=== PATIENT | female | born 1990 | race Caucasian/White ===

== ENCOUNTER 2016-11-30 12:37 | Outpatient (CLI) | payer OTHER ==
[~2016-11-30] VITALS: Ht 152.4 cm; Wt 90.5 kg
--- NOTE | 2016-11-30 12:57 | RADRPT ---
PROCEDURE: OB ultrasound for biophysical profile CLINICAL INDICATION: Decreased movement TECHNIQUE: Multiple sonographic images of the pelvis were obtained. Transabdominal views of the g ravid uterus are available for review. The images were reviewed on a PACS workstation. COMPARISON: None FINDINGS: breathing movement = 2/2 tone = 2/2 motion = 2/2 EFE = 2/2 EFE = 9.5 cm Single live intrauterine with cardiac activity of 168 bpm. position is cephal ic. The placenta is posterior. IMPRESSION: 1. Single live intrauterine gestation. 2. Biophysical profile = 8/8. 3. EFE = 9.5 cm. RPTAT: HH .Rosa Mojica MD, MD Date Time Electronically viewed and signed by .Rosa Mojica MD, on 11/30/2016 12:56 .G/
[2016-11-30 13:40] VITALS: Ht 152.4 cm; Wt 90.5 kg
[2016-11-30 13:41] VITALS: BP 107/68; PULSE 115; RESP 20
[2016-11-30] MEDS ORDERED: PRENAT PO (13:51)
--- NOTE | 2016-11-30 15:02 | TRIAGE ---
OB Triage Datetime Report Generated by CPN: 11/30/2016 15:01 Datetime: 11/30/2016 14:02 Labor Evaluation Frequency: 0 Monitor Mode: External Resting Tone Spray: Relaxed Heart Rate FHR Baseline Rate: 140 Monitor Mode: External US FHR Baseline Changes: No Baseline Change Variability: Moderate 6-25 bpm Accelerations: 10X10 Decelerations: None Category: Category I Datetime: 11/30/2016 14:00 Stage of : OB Triage Maternal Assessment Level of Consciousness: Fully Conscious Labor Evaluation Frequency: NONE Monitor Mode: External Resting Tone Spray: Relaxed Heart Rate FHR Baseline Rate: 145 Monitor Mode: External US Variability: Moderate 6-25 bpm Accelerations: 15X15 Decelerations: None Category: Category I Pain Assessment Pain Scale: 0 Pain Goal: 3 Membrane Status: Intact Vaginal Bleeding: None Datetime: 11/30/2016 13:10 Labor Evaluation Frequency: 0 Monitor Mode: External Resting Tone Spray: Relaxed Heart Rate FHR Baseline Rate: 150 Monitor Mode: External US FHR Baseline Changes: No Baseline Change Variability: Moderate 6-25 bpm Accelerations: 15X15 Decelerations: None Category: Category I Pain Assessment Pain Scale: 0 Pain Presence: Intermittent Pain Type: Dull Pain Location: Other Pain Relief Measures: Comfort Measures Pain Assessment Comments: SCIATIC Datetime: 11/30/2016 13:02 Stage of : OB Triage Assessment Type: Triage Time of Arrival: 11/30/2016 13:02 EGA: 33.6 Arrived By: Ambulatory Arrived From: Home Chief Complaint: DECREASED MOVEMENT Movement: Decreased Contractions: Denies/Absent Contractions: NONE Rupture of Membranes: Denies Vaginal Bleeding: None Vaginal Discharge: Denies Recent Sexual Intercouse: Denies Abdominal Trauma: Not Applicable Patient Complaints: None Additional Patient Complaints: NONE Time Provider Notified: 11/30/2016 14:49 Provider Notified: SALCEDA Initial Plan: NST AND BPP Maternal Assessment Level of Consciousness: Fully Conscious DTR's/Clonus: DTRs 2+; No Clonus Headache: Denies Blurred Vision: No Respiratory Effort: Unlabored; Regular Rhythm; Equal Expansion Breath Sounds, Left: Clear and Equal Breath Sounds, Right: Clear and Equal Nausea/Vomiting: Denies RUQ Epigastric Pain: Denies Lower Extremities Edema: None Degree: None Upper Extremities Edema: None Degree: None Facial Edema: None Temperature Route: Oral Fall Risk Assessment History of Falling: (0) No Secondary Diagnosis: (0) No Ambulatory Aid: (0) Bedrest/Nurse Assist IV Therapy: (0) No Gait: (0) Normal/Bedrest/Immobile Mental Status: (0) Oriented to Own Ability Fall Score: 0 Fall Risk Score Definition: No Risk: No action required Labor Evaluation Frequency: 0 Monitor Mode: External Resting Tone Spray: Relaxed Monitor Mode: External US Pain Assessment Pain Scale: 4 Pain Presence: Intermittent Pain Type: Dull Pain Location: Left Hip Vaginal Exam Dilatation (cms): DEFFER Membrane Status: Intact
--- NOTE | 2016-11-30 15:03 | PN ---
Triage Information Date/Time Reason for visit: DFM Weeks of Gestation 33+ /Para 1/0 Diabetes: none Objective Vital Signs Date Time Temp Pulse Resp B/P Pulse Ox O2 Delivery O2 Flow Rate FiO2 11/30/16 13:41 98.2 115 20 107/68 95 Room Air Heart Rate: 140's Disposition: Discharge Assessment/Plan Precautions discussed BPP 11/16 NST reassuring Follow up with provider EDGARD MCMULLEN M.D. Nov 30, 2016 15:03
== END 2016-11-30 15:10 | disposition home or self-care (01) ==
LOC: OBT 12:37 → L-D 12:37 → OBT 15:10
PROVIDERS: ATTEND Obstetrics & Gynecology
DX: O36.8130 Decreased fetal movements, third trimester, not applicable or unspecified (principal); Z3A.33 33 weeks gestation of pregnancy
CPT/HCPCS: 76818; Z7500; G0463

== ENCOUNTER 2017-01-18 19:03 | Outpatient (CLI) | payer OTHER ==
[~2017-01-18] VITALS: Ht 152.4 cm; Wt 93.0 kg
[~2017-01-18 19:03] MED LIST: PRENAT PO
--- NOTE | 2017-01-18 20:26 | RADRPT ---
PROCEDURE: US biophysical profile. CLINICAL INDICATION: Contractions. TECHNIQUE: Multiple sonographic images of the uterus were obtained. The images were revi ewed on a PACS workstation. COMPARISON: No prior studies are available for comparison. FINDINGS: There is a single live intrauterine gestation. heart rate is 134 beats per minute. The position is cephalic. The placenta is fundal grade III with no abruption or previa. The EFE is 11.1 cm. (Normal = 5-20 cm.) Breathing Movement: 2 Gross Body Movement: 2 Tone: 2 Qualitative Amniotic Fluid Volume: 2 TOTAL: 8 IMPRESSION: 1. The biophysical score is 8/8. RPTAT: QQ .Jeffrey Alberto MD, Date Time Electronically viewed and signed by .Jeffrey Alberto MD, on 01/18/2017 20:26 .R/
[2017-01-18 20:27] LABS: BASOPHILS % 0.3 % (0.0-2.0); EOSINOPHILS # 0.1 10^3/ul (0.0-0.5); EOSINOPHILS % 0.7 % (0.0-7.0); HEMATOCRIT 40.1 % (37.0-47.0); HEMOGLOBIN 13.5 g/dl (12.0-16.0); LYMPHOCYTES # 2.7 10^3/ul (0.8-2.9); LYMPHOCYTES % 27.2 % (15.0-51.0); MEAN CORPUSCULAR HEMOGLOBIN 28.9 pg (29.0-33.0); MEAN CORPUSCULAR HGB CONC 33.7 g/dl (32.0-37.0); MEAN CORPUSCULAR VOLUME 85.9 fl (82.0-101.0); MEAN PLATELET VOLUME 9.7 fl (7.4-10.4); MONOCYTE # 0.9 10^3/ul (0.3-0.9); MONOCYTES % 9.2 % (0.0-11.0); NEUTROPHIL # 6.1 10^3/ul (1.6-7.5); NEUTROPHILS % 62.2 % (39.0-77.0); PLATELET COUNT 239 10^3/UL (140-415); RED BLOOD COUNT 4.67 10^6/ul (4.20-5.40); RED CELL DISTRIBUTION WIDTH 13.6 % (11.5-14.5); WHITE BLOOD COUNT 9.8 10^3/ul (4.8-10.8)
[2017-01-18 20:39] LABS: ADD UMIC YES; UR ASCORBIC ACID NEGATIVE (NEGATIVE); UR BACTERIA FEW /HPF (NONE SEEN); UR BILIRUBIN (Dip) NEGATIVE (NEGATIVE); UR BLOOD (Dip) 1+ mg/dL (NEGATIVE); UR CLARITY CLEAR (CLEAR); UR COLOR STRAW (YELLOW); UR GLUCOSE (Dip) NEGATIVE (NEGATIVE); UR KETONES (Dip) NEGATIVE (NEGATIVE); UR LEUKOCYTE ESTERASE (Dip) NEGATIVE Leu/ul (NEGATIVE); UR NITRITE (Dip) NEGATIVE (NEGATIVE); UR RBC 1 /HPF (0-5); UR SPECIFIC GRAVITY (Dip) 1.006 (1.003-1.030); UR TOTAL PROTEIN (Dip) NEGATIVE (NEGATIVE); UR UROBILINOGEN (Dip) NEGATIVE (NEGATIVE)
[2017-01-18 21:04] LABS: ALBUMIN 3.6 g/dl (3.3-4.9); ALBUMIN/GLOBULIN RATIO 1.09; BILIRUBIN,INDIRECT 0.1 mg/dl (0-1.1); BILIRUBIN,TOTAL 0.1 mg/dl (0.2-1.3); CALCIUM 9.2 mg/dl (8.4-10.2); CREATININE 0.62 mg/dl (0.44-1.00); POTASSIUM 4.4 mmol/L (3.5-5.1); TOTAL PROTEIN 6.9 g/dl (6.1-8.1); URIC ACID 3.2 mg/dl (3.1-7.9)
--- NOTE | 2017-01-18 23:14 | PN ---
Triage Information Date/Time Reason for visit: Uterine contractions Weeks of Gestation 40 weeks and 6 days /Para Diabetes: gestational Diabetes management: diet controlled Hypertention: none Objective Heart Rate: 130's Contractions: 6-10 Minutes Apart Exam Cervix Fingertip per RN Results/Medications Result Diagram: 01/18/17201401/18/172014 Results 24 hrs Laboratory Tests Test 01/18/17 20:02 01/18/17 20:03 01/18/17 20:15 Membranes Rupture NEGATIVE Urine Color STRAW Urine Clarity CLEAR Urine pH 7.0 Urine Specific [place] 1.006 Urine Ketones NEGATIVE Urine Nitrite NEGATIVE Urine Bilirubin NEGATIVE Urine Urobilinogen NEGATIVE Urine Leukocyte Esterase NEGATIVE Urine Microscopic RBC 1 Urine Microscopic WBC 1 Urine Bacteria FEW A Urine Hemoglobin 1+ H Urine Glucose NEGATIVE Urine Total Protein NEGATIVE White Blood Count 9.8 Red Blood Count 4.67 Hemoglobin 13.5 Hematocrit 40.1 Mean Corpuscular Volume 85.9 Mean Corpuscular Hemoglobin 28.9 L Mean Corpuscular Hemoglobin Concent 33.7 Red Cell Distribution Width 13.6 Platelet Count 239 Mean Platelet Volume 9.7 Neutrophils % 62.2 Lymphocytes % 27.2 Monocytes % 9.2 Eosinophils % 0.7 Basophils % 0.3 Nucleated Red Blood Cells % 0.0 Neutrophils # 6.1 Lymphocytes # 2.7 Monocytes # 0.9 Eosinophils # 0.1 Basophils # 0.0 Nucleated Red Blood Cells # 0.0 Sodium Level 139 Potassium Level 4.4 Chloride Level 108 Carbon Dioxide Level 22 Anion Gap 13 Blood Urea Nitrogen 8 Creatinine 0.62 Glucose Level 80 Uric Acid 3.2 Calcium Level 9.2 Total Bilirubin 0.1 L Direct Bilirubin 0.00 Indirect Bilirubin 0.1 Aspartate Amino Transf (AST/SGOT) 23 Alanine Aminotransferase (ALT/SGPT) 36 Alkaline Phosphatase 150 H Total Protein 6.9 Albumin 3.6 Globulin 3.30 H Albumin/Globulin Ratio 1.09 Imaging Results [facility] 11/16 Disposition: Signed AMA Assessment/Plan Patient is extensively counseled about the potential complications of continuing with , including but not limited to distress, meconium aspiration , . After counseling, patient states she understands and signs out against medical advice. BRYNN WEI MD Jan 18, 2017 23:14
[2017-01-19 00:38] VITALS: Ht 152.4 cm; Wt 93.0 kg
[2017-01-19 00:39] VITALS: BP 125/75; PULSE 77; RESP 18
--- NOTE | 2017-01-19 01:57 | TRIAGE ---
OB Triage Datetime Report Generated by CPN: 01/19/2017 01:56 Datetime: 01/18/2017 23:08 Stage of : OB Triage Comments: MONITORS OFF. PT UP TO DRESS. Datetime: 01/18/2017 22:50 Stage of : OB Triage Datetime: 01/18/2017 22:30 Stage of : OB Triage Monitor Mode: External Contraction Comments: [facility] DID NOT PICKING UP UCs DURING PT SITTING POSITION. Monitor Mode: External US Comments: EFM LOSS OF CONTACT WHEN PT HAS SITTING POSITION. PT STATED SHE UNABLE LYING BACK DUE TO ABDOMEN PAIN. Datetime: 01/18/2017 21:42 Stage of : OB Triage Datetime: 01/18/2017 21:30 Stage of : OB Triage Labor Evaluation Frequency: 2.5-5 Monitor Mode: External Duration (sec)2399: 50-60 Quality: Mild Pattern: Normal: <= 5 Contractions in 10 Minutes Resting Tone Kendrick: Relaxed Heart Rate FHR Baseline Rate: 135 Monitor Mode: External US Variability: Moderate 6-25 bpm Accelerations: 15X15 Decelerations: None Pain Assessment Pain Scale: 4 Pain Presence: Intermittent Pain Type: Contraction; Pressure Pain Location: Perineum Pain Goal: 3 Pain Relief Measures: Comfort Measures Datetime: 01/18/2017 20:30 Stage of : OB Triage Maternal Assessment Level of Consciousness: Fully Conscious Headache: Denies Breath Sounds, Left: Clear and Equal Breath Sounds, Right: Clear and Equal Nausea/Vomiting: Denies RUQ Epigastric Pain: Denies Labor Evaluation Frequency: 2-5.5 Monitor Mode: External Duration (sec)2399: 50-60 Quality: Mild Pattern: Normal: <= 5 Contractions in 10 Minutes Resting Tone Kendrick: Relaxed Heart Rate FHR Baseline Rate: 140 Monitor Mode: External US Variability: Moderate 6-25 bpm Accelerations: 15X15 Decelerations: None Category: Category I Pain Assessment Pain Scale: 4 Pain Presence: Intermittent Pain Type: Contraction; Pressure Pain Location: Perineum Pain Goal: 3 Pain Relief Measures: Comfort Measures Vaginal Exam Dilatation (cms): 0.0 Effacement (%): 80 Station: -2 Exam By: TIFF OROURKE Datetime: 01/18/2017 20:00 Stage of : OB Triage Pool: Negative ROM Test Kit: VAGINAL SPECIMEN COLLECTED FOR ROM(+). Datetime: 01/18/2017 19:45 Stage of : OB Triage Datetime: 01/18/2017 19:38 Stage of : OB Triage Datetime: 01/18/2017 19:30 Stage of : OB Triage Maternal Assessment Level of Consciousness: Fully Conscious Headache: Denies Blurred Vision: No Respiratory Effort: Unlabored; Equal Expansion Breath Sounds, Left: Clear and Equal Breath Sounds, Right: Clear and Equal Nausea/Vomiting: Denies RUQ Epigastric Pain: Denies Lower Extremities Edema: None Upper Extremities Edema: None Facial Edema: None Temperature Route: Oral Labor Evaluation Frequency: 4-6 Monitor Mode: External Duration (sec)2399: 50-70 Quality: Mild Pattern: Normal: <= 5 Contractions in 10 Minutes Resting Tone Kendrick: Relaxed Heart Rate FHR Baseline Rate: 140 Monitor Mode: External US Variability: Moderate 6-25 bpm Accelerations: 15X15 Decelerations: None Category: Category I Pain Assessment Pain Scale: 4 Pain Presence: Intermittent Pain Type: Contraction; Pressure Pain Location: Perineum Pain Goal: 3 Pain Relief Measures: Comfort Measures Vaginal Exam Dilatation (cms): 0.0 Effacement (%): 80 Station: -2 Exam By: TIFF OROURKE Datetime: 01/18/2017 19:25 Stage of : OB Triage Maternal Assessment Level of Consciousness: Fully Conscious DTR's/Clonus: DTRs 2+; No Clonus Headache: Denies Blurred Vision: No Respiratory Effort: Unlabored; Regular Rhythm; Equal Expansion Breath Sounds, Left: Clear and Equal Breath Sounds, Right: Clear and Equal Nausea/Vomiting: Denies RUQ Epigastric Pain: Denies Lower Extremities Edema: None Upper Extremities Edema: None Facial Edema: None Temperature Route: Axillary Fall Risk Assessment History of Falling: (0) No Secondary Diagnosis: (0) No Ambulatory Aid: (0) Bedrest/Nurse Assist IV Therapy: (0) No Gait: (0) Normal/Bedrest/Immobile Mental Status: (0) Oriented to Own Ability Fall Score: 0 Fall Risk Score Definition: No Risk: No action required Datetime: 01/18/2017 19:24 Stage of : OB Triage Datetime: 01/18/2017 19:15 Time of Arrival: 01/18/2017 18:56 EGA: 40.6 Arrived By: Ambulatory Arrived From: Home Chief Complaint: PT C/O ABDOMEN PAIN Movement: Present Contractions: Irregular Time Contractions Began: 01/18/2017 07:00 Rupture of Membranes: Unsure Vaginal Bleeding: None Vaginal Discharge: Denies Recent Sexual Intercouse: Denies Abdominal Trauma: Not Applicable Patient Complaints: Contractions Time Provider Notified: 01/18/2017 19:38 Provider Notified: DR WEI Initial Plan: PLACE EFM AND TOCO, INITIAL PHYSICAL ASSESSMENT, SVE AND NOTIFY MD. Datetime: 11/30/2016 14:57 Stage of : OB Triage Maternal Assessment Level of Consciousness: Fully Conscious Labor Evaluation Frequency: OCCASIONAL Monitor Mode: External Duration (sec)2399: 30-40 Quality: Mild Resting Tone Kendrick: Relaxed Heart Rate FHR Baseline Rate: 145 Monitor Mode: External US Variability: Moderate 6-25 bpm Accelerations: 15X15 Decelerations: Variable Pain Assessment Pain Scale: 0 Pain Goal: 3 Membrane Status: Intact Vaginal Bleeding: None Datetime: 11/30/2016 13:02 EGA: 33.6 Fall Score: 0 Fall Risk Score Definition: No Risk: No action required
[2017-01-19] MEDS ORDERED: FER325 PO (16:22)
[2017-01-19] MEDS ORDERED: CALC600T5 PO (16:22)
== END 2017-01-18 23:00 | disposition left against medical advice (07) ==
LOC: OBT 19:03 → L-D 19:04 → OBT 23:00 → L-D 23:20
PROVIDERS: ATTEND Obstetrics & Gynecology
DX: O62.9 Abnormality of forces of labor, unspecified (principal); O24.410 Gestational diabetes mellitus in pregnancy, diet controlled; Z3A.40 40 weeks gestation of pregnancy; Z53.21 Procedure and treatment not carried out due to patient leaving prior to being seen by health care provider
CPT/HCPCS: 76818; 80053; 81001; 84112; 84560; 85025; Z7500; G0463

== ENCOUNTER 2017-01-19 10:48 | Inpatient (IN) | payer OTHER ==
[~2017-01-19] VITALS: Ht 152.4 cm; Wt 91.5 kg
[2017-01-19] MEDS: LACTATED RINGER'S 1,000 ML IV SCH (11:11)
[2017-01-19 11:18] VITALS: BP 129/65; PULSE 86; RESP 18; Ht 152.4 cm; Wt 91.5 kg
[2017-01-19] MEDS ORDERED: HYDROCODONE/APAP (5/325) TAB PO PRN (11:30)
[2017-01-19] MEDS ORDERED: MISOPROSTOL 200 MCG TAB PR PRN (11:30)
[2017-01-19] MEDS ORDERED: BUTORPHANOL 2 MG INJ IV PRN (11:30)
[2017-01-19] MEDS ORDERED: LIDOCAINE 1% (MPF) 30 ML INJ INJ PRN (11:30)
[2017-01-19] MEDS ORDERED: IBUPROFEN 600 MG TAB PO PRN (11:30)
[2017-01-19] MEDS ORDERED: OXYTOCIN 30 UNITS/LR 500 ML IV SCH ×2 (11:30)
--- NOTE | 2017-01-19 13:07 | TRIAGE ---
OB Triage Datetime Report Generated by CPN: 01/19/2017 13:07 Datetime: 01/19/2017 12:56 Bedside Blood Glucose: 90 Datetime: 01/19/2017 12:02 Stage of : Labor Assessment Type: Admission Assessment Vaginal Bleeding: None Level of Consciousness: Fully Conscious DTR's/Clonus: DTRs 2+; No Clonus Headache: Denies Blurred Vision: No Respiratory Effort: Unlabored; Regular Rhythm; Equal Expansion Breath Sounds, Left: Clear and Equal Breath Sounds, Right: Clear and Equal Nausea/Vomiting: Denies RUQ Epigastric Pain: Denies Lower Extremities Edema: None Degree: None Upper Extremities Edema: None Degree: None Facial Edema: None History of Falling: (0) No Secondary Diagnosis: (0) No Ambulatory Aid: (0) Bedrest/Nurse Assist IV Therapy: (0) No Gait: (0) Normal/Bedrest/Immobile Mental Status: (0) Oriented to Own Ability Fall Score: 0 Fall Risk Score Definition: No Risk: No action required Frequency: 3-5 Duration (sec)2399: 50-70 Quality: Mild Pattern: Normal: <= 5 Contractions in 10 Minutes Resting Tone [place]: Relaxed FHR Baseline Rate: 135 Variability: Moderate 6-25 bpm Accelerations: 15X15 Decelerations: None Category: Category I Pain Scale: 6 Pain Presence: Intermittent Pain Type: Cramping Pain Location: Abdomen Pain Goal: 0 Membrane Status: Intact Datetime: 01/19/2017 11:25 Assessment Type: Triage Level of Consciousness: Fully Conscious DTR's/Clonus: DTRs 2+; No Clonus Headache: Denies Blurred Vision: No Respiratory Effort: Unlabored; Regular Rhythm; Equal Expansion Breath Sounds, Left: Clear and Equal Breath Sounds, Right: Clear and Equal Nausea/Vomiting: Denies RUQ Epigastric Pain: Denies Lower Extremities Edema: None Degree: None Degree: None Facial Edema: None History of Falling: (0) No Secondary Diagnosis: (0) No Ambulatory Aid: (0) Bedrest/Nurse Assist IV Therapy: (0) No Gait: (0) Normal/Bedrest/Immobile Mental Status: (0) Oriented to Own Ability Fall Score: 0 Fall Risk Score Definition: No Risk: No action required Datetime: 01/19/2017 11:23 Stage of : OB Triage Assessment Type: Triage Level of Consciousness: Fully Conscious DTR's/Clonus: DTRs 2+; No Clonus Headache: Denies Blurred Vision: No Respiratory Effort: Unlabored; Regular Rhythm; Equal Expansion Breath Sounds, Left: Clear and Equal Breath Sounds, Right: Clear and Equal Nausea/Vomiting: Denies RUQ Epigastric Pain: Denies Lower Extremities Edema: None Degree: None Upper Extremities Edema: None Degree: None Facial Edema: None Temperature Route: Axillary History of Falling: (0) No Secondary Diagnosis: (0) No Ambulatory Aid: (0) Bedrest/Nurse Assist IV Therapy: (0) No Gait: (0) Normal/Bedrest/Immobile Mental Status: (0) Oriented to Own Ability Fall Score: 0 Fall Risk Score Definition: No Risk: No action required Frequency: 3-5 Monitor Mode: External Duration (sec)2399: 60-180 Quality: Strong Pattern: Normal: <= 5 Contractions in 10 Minutes Resting Tone [place]: Relaxed Resting Tone IUP (mmHg): FHR Baseline Rate: 145 Monitor Mode: External US Variability: Moderate 6-25 bpm Accelerations: 15X15 Decelerations: None Category: Category I Pain Scale: 10 Pain Presence: Intermittent Pain Type: Contraction Pain Location: Abdomen; Back; Perineum Pain Goal: 2 Pain Relief Measures: Comfort Measures Pain Assessment Comments: 2 Dilatation (cms): 3.0 Effacement (%): 80 Station: -3 Exam By: abebe garcia Membrane Status: Intact Datetime: 01/19/2017 11:22 Time of Arrival: 01/19/2017 10:30 EGA: 41.0 Arrived By: Ambulatory Arrived From: Home Chief Complaint: uc's since 0300 Movement: Present Contractions: Regular Contractions: 3-5 Rupture of Membranes: Denies Vaginal Bleeding: None Vaginal Discharge: Denies Recent Sexual Intercouse: Denies Abdominal Trauma: Not Applicable Patient Complaints: Contractions; Cramping; Back Pain Additional Patient Complaints: pt signed ama last night 01/18 pt was not ready to be admitted. Time Provider Notified: 01/19/2017 11:07 Provider Notified: dr. miranda Initial Plan: sve Datetime: 01/18/2017 19:25 Fall Score: 0 Fall Risk Score Definition: No Risk: No action required Datetime: 01/18/2017 19:15 EGA: 40.6 Chief Complaint: PT C/O LOWER ABDOMEN PRESSURE
--- NOTE | 2017-01-19 15:06 | HP ---
Date/Time of Note Date/Time of Note DATE: 01/19/17 TIME: 15:00 OB - History Hx of Present Free Text/Dictation Patient is a 26-year-old with IUP at 41 week [address] care [address] Dr[address] Lorie Dill presented to triage complaint of contractions and was noted to be 3 cm dilated. Patient requested and transferred her care to OB hospitalist for delivery from her primary rolled gold plater. Patient declined any intervention including IV line, Pitocin and epidural. Past OB history significant for history of GDM A1 diet-controlled. DAVID: January 12, 2017 beside GDM A1 and maternal obesity was not complicated. She was 3 cm dilated 90% effaced -3 station with intact membranes. NST: Category 1. EFW 7 lbs. 5 oz. GBS negative Estimated Due Date: Jan 12, 2017 : 1 Para: 0 Spontaneous : 0 Therapeutic : 0 Care: Good Care Abnormal Ultrasound Findings: GDM A1 Maternal obesity complicated Prostate Past Family/Social History * Past Medical, Surgical, Family and Obstetric Histories reviewed from chart. Blood Type: B+ Rubella: immune RPR/VDRL: Negative GBS Status: Negative HBsAG: Negative OB Admission Exam Vital Signs Vital Signs Vital Signs Date Time Temp Pulse Resp B/P Pulse Ox O2 Delivery O2 Flow Rate FiO2 01/19/17 11:18 97.5 86 18 129/65 Room Air Physical Exam HEENT: WNL Lungs: Clear Abdomen: WNL Extremities: Edema (2+ bilateral symmetric edema nonpitting) Cervical Dilatation: 3cm Effacement: 100% Station: -3 Membranes: Intact Heart Rate: 130's Accelerations: Accelerations Present Decelerations: No Decelerations Varibility: Moderate Contractions on Admission: < 5 Minutes Apart Intensity: Moderate Last 72 hourBlood Glucose Bedside Glucose - 72 Hours Test 01/19/17 12:56 Bedside Glucose 90mg/dL (70-220) OB Assessment/Plan Reason for admission: active labor Other Assessment: IUP at 41 weeks GDM A1 diet-controlled GBS negative heart rate category 1 Declined any intervention including IV line as well as Pitocin or epidural and AROM. Discussed and recommended to have at least access line in case of emergency and need immediate intervention for maternal/ well being. Declined at this time Admit the patient close monitoring Access line if the patient agrees Blood sugar checking during active phase of labor every 2 hours Goal of blood sugar less than 110 Anticipate EMILY LEWIS MD Jan 19, 2017 15:06
[2017-01-19] MEDS ORDERED: FER325 PO (16:22)
[2017-01-19] MEDS ORDERED: CALC600T5 PO (16:22)
[2017-01-19] MEDS ORDERED: DIPHENHYDRAMINE 50 MG INJ IV ONE (18:45)
[2017-01-19] MEDS ORDERED: DIPHENHYDRAMINE 25 MG CAP PO ONE (19:00)
[2017-01-19 19:13] LABS: BARBITURATES Negative (NEGATIVE); BENZODIAZEPINES Negative (NEGATIVE); CANNABINOIDS Negative (NEGATIVE); COCAINE Negative (NEGATIVE); OPIATES Negative (NEGATIVE)
[2017-01-19] MEDS: BUTORPHANOL 2 MG INJ IV PRN (21:25)
[2017-01-19 21:37] LABS: BASOPHILS % 0.2 % (0.0-2.0); EOSINOPHILS % 0.1 % (0.0-7.0); HEMATOCRIT 40.6 % (37.0-47.0); HEMOGLOBIN 13.3 g/dl (12.0-16.0); LYMPHOCYTES % 17.3 % (15.0-51.0); MEAN CORPUSCULAR HEMOGLOBIN 27.6 pg (29.0-33.0); MEAN CORPUSCULAR HGB CONC 32.8 g/dl (32.0-37.0); MEAN CORPUSCULAR VOLUME 84.2 fl (82.0-101.0); MEAN PLATELET VOLUME 9.9 fl (7.4-10.4); MONOCYTE # 0.8 10^3/ul (0.3-0.9); MONOCYTES % 6.8 % (0.0-11.0); NEUTROPHIL # 8.6 10^3/ul (1.6-7.5); NEUTROPHILS % 75.3 % (39.0-77.0); PLATELET COUNT 271 10^3/UL (140-415); RED BLOOD COUNT 4.82 10^6/ul (4.20-5.40); RED CELL DISTRIBUTION WIDTH 13.9 % (11.5-14.5); WHITE BLOOD COUNT 11.4 10^3/ul (4.8-10.8)
[2017-01-19 21:55] LABS: INR 0.87; PARTIAL THROMBOPLASTIN TIME 25.8 Sec (25.0-35.0); PROTIME 11.8 Sec (12.2-14.2); PT RATIO 0.9
[2017-01-19 22:23] LABS: ALBUMIN 3.5 g/dl (3.3-4.9); ALBUMIN/GLOBULIN RATIO 0.89; CALCIUM 9.5 mg/dl (8.4-10.2); CREATININE 0.56 mg/dl (0.44-1.00); POTASSIUM 3.8 mmol/L (3.5-5.1); TOTAL PROTEIN 7.4 g/dl (6.1-8.1)
[2017-01-20] MEDS: BUTORPHANOL 2 MG INJ IV PRN (04:09)
[2017-01-20] MEDS: LACTATED RINGER'S 1,000 ML IV PRN ×2 (08:31→09:38)
[2017-01-20] MEDS ORDERED: FENTAnyl 2MCG/ML-ROPIV 0.2% 100 ML ONE (09:14)
[2017-01-20] MEDS: LACTATED RINGER'S 1,000 ML IV SCH ×2 (10:02→15:57)
[2017-01-20] MEDS ORDERED: FENTAnyl 2MCG/ML-ROPIV 0.2% 100 ML BAG EPI SCH (10:30)
[2017-01-20] MEDS ORDERED: NALOXONE (0.4 MG/ML) INJ IV PRN (10:30)
[2017-01-20] MEDS ORDERED: DIPHENHYDRAMINE 50 MG INJ IV PRN (10:30)
[2017-01-20] MEDS ORDERED: ONDANSETRON 4 MG INJ IV PRN (10:30)
[2017-01-20] MEDS ORDERED: TRIMETHOBENZAMIDE 100 MG/ML VIAL IM PRN (10:30)
[2017-01-20] MEDS ORDERED: ONDANSETRON 4 MG INJ IV STA (15:26)
[2017-01-20] MEDS ORDERED: CEFAZOLIN 2 GM/50 ML (PMX) 50 ML IV SCH (15:30)
[2017-01-20] MEDS ORDERED: CITRIC ACID/NA CITRATE 30 ML CUP PO ONE (15:30)
[2017-01-20] MEDS ORDERED: OXYTOCIN 30 UNITS/LR 500 ML IV SCH (15:30)
--- NOTE | 2017-01-20 15:48 | HP ---
Date/Time of Note Date/Time of Note DATE: 01/20/17 TIME: 15:36 OB - History Hx of Present Free Text/Dictation January 20, 2017 Preoperative obstetrical history and physical; This patient is a 26 years old 2 para 0 1 with estimated date of confinement of01/12/2017 which makes her 41 weeks and 1 day. She was admitted yesterday in early labor . Making slow progress, this morning she was given epidural anesthesia. Today around at 1:00 when I examined her ;she was about 7 cm and than 1 hour later without much change the anterior lip started swelling, heart tracing was not very satisfactory and shoed deep variable occasionally late deceleration. The condition was discussed with the patient, her family and the dula that they had and the decision was made to go ahead with section. I should mention that during she developed gestational diabetes mellitus was diet-controlled. Her past medical history is significant due to an that she had. Also the bilateral inguinal hernia repair as well as umbilical hernia repair at age 2. She does not give any other history of any other surgeries or major medical problems. Her course apparently was fairly smooth except for gestational diabetes. Her last blood sugar here today was 85 Laboratory Tests Test 01/19/17 16:07 01/19/17 18:12 01/19/17 21:04 01/19/17 21:11 Bedside Glucose 85mg/dL 97mg/dL 84mg/dL White Blood Count 11.410^3/ul Red Blood Count 4.8210^6/ul Hemoglobin 13.3g/dl Hematocrit 40.6% Mean Corpuscular Volume 84.2fl Mean Corpuscular Hemoglobin 27.6pg Mean Corpuscular Hemoglobin Concent 32.8g/dl Red Cell Distribution Width 13.9% Platelet Count 95845^3/UL Mean Platelet Volume 9.9fl Neutrophils % 75.3% Lymphocytes % 17.3% Monocytes % 6.8% Eosinophils % 0.1% Basophils % 0.2% Nucleated Red Blood Cells % 0.0/100WBC Neutrophils # 8.610^3/ul Lymphocytes # 2.010^3/ul Monocytes # 0.810^3/ul Eosinophils # 0.010^3/ul Basophils # 0.010^3/ul Nucleated Red Blood Cells # 0.010^3/ul Prothrombin Time 11.8Sec Prothrombin Time Ratio 0.9 INR International Normalized Ratio 0.87 Activated Partial Thromboplast Time 25.8Sec Sodium Level 135mmol/L Potassium Level 3.8mmol/L Chloride Level 108mmol/L Carbon Dioxide Level 22mmol/L Anion Gap 9 Blood Urea Nitrogen 7mg/dl Creatinine 0.56mg/dl Glucose Level 93mg/dl Calcium Level 9.5mg/dl Total Bilirubin 0.0mg/dl Direct Bilirubin 0.00mg/dl Indirect Bilirubin 0.0mg/dl Aspartate Amino Transf (AST/SGOT) 24IU/L Alanine Aminotransferase (ALT/SGPT) 29IU/L Alkaline Phosphatase 158IU/L Total Protein 7.4g/dl Albumin 3.5g/dl Globulin 3.90g/dl Albumin/Globulin Ratio 0.89 Hepatitis B Surface Antigen NEGATIVE Test 01/20/17 00:33 01/20/17 04:47 01/20/17 07:45 01/20/17 11:02 Bedside Glucose 84mg/dL 111mg/dL 119mg/dL 99mg/dL Test 01/20/17 13:43 Bedside Glucose 85mg/dL Current Medications Medications (Trade) Dose Ordered Sig/Corbin Route PRN Reason Start Time Stop Time Status Last Admin Dose Admin Lactated Ringer's 1,000 ml @ 125 mls/hr Q8H IV 01/19/17 11:11 01/20/17 10:02 Oxytocin/Lactated Ringer's 500 ml @ 0 mls/hr TITRATE IV 01/19/17 11:30 Butorphanol Tartrate (Stadol) 1 mg Q2H PRN IV PAIN 01/19/17 11:30 Butorphanol Tartrate (Stadol) 2 mg Q2H PRN IV PAIN 01/19/17 11:30 01/20/17 04:09 Lidocaine 30 ml 30 ml ONCE PRN INJ EPISIOTOMY/TEARING 01/19/17 11:30 Oxytocin/Lactated Ringer's 500 ml @ 125 mls/hr ONCE -MAY REPEAT X1 IV 01/19/17 11:30 Oxytocin/Lactated Ringer's 500 ml @ 125 mls/hr ONCE IV 01/19/17 11:30 Ibuprofen (Motrin) 600 mg ONCE PRN PO Mild Pain (Pain Score 1-3) 01/19/17 11:30 Acetaminophen/ Hydrocodone Bitart 2 tab 2 tab ONCE PRN PO Moderate to Severe Pain (4-10) 01/19/17 11:30 Lactated Ringer's (Lr) 1,000 ml @ 2,000 mls/hr Q30M PRN IV PRE-EPIDURAL BOLUS 01/19/17 11:20 01/20/17 09:38 Misoprostol (Cytotec) 1,000 mcg ONCE PRN UT VAGINAL BLEEDING 01/19/17 11:30 Diphenhydramine HCl (Benadryl) 25 mg ONCE ONCE IV 01/19/17 18:45 01/19/17 18:54 DC Diphenhydramine HCl 25 mg 25 mg ONCE ONCE PO 01/19/17 19:00 01/19/17 19:01 DC 01/19/17 18:56 Fentanyl/ Ropivacaine 100 ml @ ud STK-MED ONCE .ROUTE 01/20/17 09:14 01/20/17 09:15 DC Naloxone HCl (Narcan) 0.1 mg Q2M PRN IV FOR RESP RATE 8 OR LESS 01/20/17 10:30 01/21/17 10:29 Diphenhydramine HCl (Benadryl) 25 mg Q6H PRN IV ITCHING 01/20/17 10:30 01/21/17 10:29 Ondansetron HCl (Zofran Inj) 4 mg Q6H PRN IV NAUSEA AND/OR VOMITING 01/20/17 10:30 01/21/17 10:29 Trimethobenzamide HCl (Tigan) 200 mg Q6H PRN IM NAUSEA AND/OR VOMITING 01/20/17 10:30 01/21/17 10:29 Fentanyl/ Ropivacaine 100 ml 100 ml EPIDURAL INFUSION EPI 01/20/17 10:30 01/20/17 15:18 Cefazolin Sodium/ Dextrose 50 ml @ 100 mls/hr ONCE IV 01/20/17 15:30 Oxytocin/Lactated Ringer's 500 ml @ 125 mls/hr ONCE IV 01/20/17 15:30 Citric Acid/ Sodium Citrate (Bicitra) 30 ml ONCE ONCE PO 01/20/17 15:30 01/20/17 15:34 DC Ondansetron HCl (Zofran Inj) 4 mg ONCE STAT IV 01/20/17 15:26 01/20/17 15:34 DC . . . . On physical examination she is a fairly well-developed well-nourished lady postterm. her ear nose throat are normal neck is normal no neck vein distention no thyromegaly no lymph node enlargement in about her body her chest is clear to auscultation percussion heart normal sinus rhythm Breasts are soft free of masses nipples are normal movement is normal. On examination of heart tracing as I mentioned is not satisfactory . Baby is in vertex presentation. Her extremities are normal no edema no varicosities knee-jerk reflexes are normal. section and the possibility of need for another section for future , possible complication of including hemorrhage need for blood transfusion infection mention to her and her ,. We will go ahead with this procedure soon. End of dictation thank you Past Family/Social History * On review her lab work her blood type is a positive she is immune to rubella Past Medical, Surgical, Family and Obstetric Histories reviewed from chart. Blood Type: A+ OB Admission Exam Vital Signs Vital Signs Vital Signs Date Time Temp Pulse Resp B/P Pulse Ox O2 Delivery O2 Flow Rate FiO2 01/19/17 11:18 97.5 86 18 129/65 Room Air Last 72 hourBlood Glucose Bedside Glucose - 72 Hours Test 01/19/17 12:56 01/19/17 16:07 01/19/17 18:12 01/19/17 21:04 Bedside Glucose 90mg/dL (70-220) 85mg/dL (70-220) 97mg/dL (70-220) 84mg/dL (70-220) Test 01/20/17 00:33 01/20/17 04:47 01/20/17 07:45 01/20/17 11:02 Bedside Glucose 84mg/dL (70-220) 111mg/dL (70-220) 119mg/dL (70-220) 99mg/dL (70-220) Test 01/20/17 13:43 Bedside Glucose 85mg/dL (70-220) Last 72 hours Lab Results CBC & BMP 01/19/17 21:11 Liver Function Test 01/19/17 21:11 Alanine Aminotransferase (ALT/SGPT) 29 Albumin 3.5 Alkaline Phosphatase 158 H Aspartate Amino Transf (AST/SGOT) 24 Direct Bilirubin 0.00 Total Protein 7.4 ABIOLA ADAMS MD Jan 20, 2017 15:48
[2017-01-20] MEDS ORDERED: NA BICARBONATE 8.4% 50 ML SYG ONE (16:02)
[2017-01-20] MEDS ORDERED: METOCLOPRAMIDE 10 MG INJ ONE (16:02)
[2017-01-20] MEDS ORDERED: PHENYLephrine (100 MCG/ML) 5ML SYG ONE (16:02)
[2017-01-20] MEDS ORDERED: LIDOCAINE 2% (SDV) 5 ML INJ ONE (16:02)
[2017-01-20] MEDS ORDERED: FENTAnyl 50 MCG/ML VIAL ONE ×5 (16:03→16:44)
[2017-01-20] MEDS ORDERED: morphine SULFATE/PF (10 MG/10 ML) INJ ONE (16:03)
[2017-01-20] MEDS ORDERED: KETAMINE 500 MG INJ ONE (16:24)
[2017-01-20] MEDS ORDERED: OXYTOCIN 10 UNIT INJ ONE ×2 (16:30→17:15)
[2017-01-20] MEDS ORDERED: MIDAZOLAM 1 MG/ML 2 ML INJ ONE ×2 (16:31→17:04)
[2017-01-20] MEDS ORDERED: KETOROLAC 30 MG INJ ONE (16:38)
[2017-01-20] MEDS: OXYTOCIN 30 UNITS/LR 500 ML IV SCH ×2 (18:20→20:16)
--- NOTE | 2017-01-20 20:44 | OPR ---
Operative Report Planned Procedure Free Text/Dictation Primary section Lack of progress Nonreassuring heart rate tracing Performed by see signature line Anesthesiologist spinal Dr. Parish Insulation Inspector Anesthesia Type: spinal Procedure Description Under satisfactory Spinal anesthesia, the patient was prepped and draped and placed in a supine position, tilted to the left. Pfannenstiel incision was made , carried through the subcutaneous tissue. Bleeders brought under control with electrocautery. Fascia incised to the length of the incision. Rectus muscles from the fascia, divided midline. Peritoneum exposed, entered through a transverse incision. Exploration of abdomen revealed gravid uterus. Bladder flap was developed. Transverse incision was made in the lower segment of the uterus. Amniotic sac ruptured. clear amniotic fluid noted. Nasal oropharyngeal suction was performed. The baby was handed to the team for immediate attention. The placenta was delivered manually intact. Uterine cavity was cleaned with wet sponge and drainage established. Uterus closed in 2 layers using 0 chromic catgut in continuous fashion. Peritoneal cavity irrigated with warm saline. Sponge, needle and instrument count reported to be correct. Abdominal peritoneum closed with Double 0 chromic catgut continuously. Rectus muscle approximated with Same material. Fascia closed with Vicryl 1, and skin closed with rustam. Estimated blood loss 600 cc. Post-Procedure Findings: Live Baby Female with score of 8 in 1 minute and 8 in 5 minutes. the weight of the baby was 6 lbs. 13 oz. Physician Certification I, the undersigned physician, hereby certify that I have discussed the procedure described in this consent form with this patient (or the patient's legal membership sales representative), including: * The risk and benefits of the procedure; * Any adverse reactions that may reasonably be expected to occur; * Any alternative efficacious methods of treatment which may be medically viable ; * The potential problems that may occur during recuperation; * Potential for blood transfusion and associated risks/benefits; and * Any research or economic interest I may have regarding this treatment. I further certify that the patient/legally responsible person was encouraged to ask question and that all questions were answered. Copies To: Copies To: ABIOLA ADAMS MD Jan 20, 2017 17:30 Procedure date Jan 20, 2017 Performed by see signature line ABIOLA ADAMS MD Jan 20, 2017 20:44
[2017-01-20] MEDS: KETOROLAC 30 MG INJ IV PRN (20:52)
[2017-01-20 21:20] VITALS: BP 133/63; PULSE 81; RESP 18
[2017-01-21] VITALS: BP 115/59; PULSE 89; RESP 18
[2017-01-21] MEDS ORDERED: LACTATED RINGER'S 1,000 ML IV SCH (00:24)
[2017-01-21] MEDS ORDERED: NA PHOSPHATE/BIPHOS 133 ML ENEMA PR PRN (00:30)
[2017-01-21] MEDS ORDERED: OXYTOCIN 30 UNITS/LR 500 ML IV PRN (00:30)
[2017-01-21] MEDS ORDERED: MISOPROSTOL 200 MCG TAB PR PRN (00:30)
[2017-01-21] MEDS ORDERED: OXYCODONE/ACETAMINOPHEN (5/325) TAB PO PRN (00:30)
[2017-01-21] MEDS ORDERED: METHYLERGONOVINE 0.2 MG INJ IM PRN (00:30)
[2017-01-21] MEDS ORDERED: LANOLIN 7 GM TUBE TOP PRN (00:30)
[2017-01-21] MEDS ORDERED: ACETAMINOPHEN 500 MG TAB PO PRN (00:30)
[2017-01-21] MEDS ORDERED: METHYLERGONOVINE 0.2 MG TAB PO PRN (00:30)
[2017-01-21] MEDS ORDERED: CARBOPROST 250 MCG INJ IM PRN (00:30)
[2017-01-21] MEDS: OXYTOCIN 30 UNITS/LR 500 ML IV SCH ×2 (00:50→11:41)
[2017-01-21] MEDS: morphine 2 MG INJ IV PRN ×2 (01:22→08:01)
[2017-01-21] MEDS ORDERED: morphine 4 MG/ML VIAL IV PRN (01:30)
[2017-01-21] MEDS: KETOROLAC 30 MG INJ IV PRN ×2 (03:13→11:42)
[2017-01-21 04:00] VITALS: BP 101/61; PULSE 84; RESP 19
[2017-01-21 08:30] VITALS: BP 106/58; PULSE 98; RESP 18
[2017-01-21 09:02] LABS: BASOPHILS % 0.2 % (0.0-2.0); EOSINOPHILS % 0.1 % (0.0-7.0); HEMATOCRIT 32.8 % (37.0-47.0); HEMOGLOBIN 10.8 g/dl (12.0-16.0); LYMPHOCYTES # 1.9 10^3/ul (0.8-2.9); MEAN CORPUSCULAR HEMOGLOBIN 28.9 pg (29.0-33.0); MEAN CORPUSCULAR HGB CONC 32.9 g/dl (32.0-37.0); MEAN CORPUSCULAR VOLUME 87.7 fl (82.0-101.0); MEAN PLATELET VOLUME 9.9 fl (7.4-10.4); MONOCYTE # 1.3 10^3/ul (0.3-0.9); NEUTROPHILS % 75.3 % (39.0-77.0); PLATELET COUNT 217 10^3/UL (140-415); RED BLOOD COUNT 3.74 10^6/ul (4.20-5.40); RED CELL DISTRIBUTION WIDTH 14.3 % (11.5-14.5); WHITE BLOOD COUNT 13.2 10^3/ul (4.8-10.8)
--- NOTE | 2017-01-21 10:31 | QN ---
Documentation Comment PPD#1 is stable afebrile +BM +Voids,No VB VS stable Gen NAD Abd soft NT ND Genitalia No blood at perinium --->discharge plan tomorrow EDGARD MCMULLEN M.D. Jan 21, 2017 10:31
[2017-01-21 11:47] VITALS: BP 115/70; PULSE 105; RESP 16
[2017-01-21] MEDS: IBUPROFEN 600 MG TAB PO PRN (16:48)
[2017-01-21 16:55] VITALS: BP 121/72; PULSE 100; RESP 14
[2017-01-21 19:45] VITALS: BP 106/54; PULSE 90; RESP 18
[2017-01-21] MEDS: OXYCODONE/ACETAMINOPHEN (5/325) TAB PO PRN (21:21)
[2017-01-22] MEDS: OXYCODONE/ACETAMINOPHEN (5/325) TAB PO PRN ×3 (04:34→22:09)
[2017-01-22 08:10] VITALS: BP 118/79; PULSE 87; RESP 16
[2017-01-22] MEDS: IBUPROFEN 600 MG TAB PO PRN (10:06)
--- NOTE | 2017-01-22 13:49 | QN ---
Documentation Comment Progress Note POD #2 Pt is doing well and is w/o complaints except seems to not be asking for pain meds as needed and ends up in pain.+ flatus. No BM. T=97.9 BP 118/79 Abdomen soft, ND. Incision is clean, dry and intact, Lochia moderate. Ext 1+ edema. P: Continue care.DE/W pt to ask for pain meds when she first needs it as it works better to maintain pain control then to try to catch up. Plan d/c tomorrow. LUCY GAGE MD Jan 22, 2017 13:49
[2017-01-22 15:52] VITALS: BP 116/79; PULSE 50; RESP 14
[2017-01-22] MEDS: IBUPROFEN 800 MG TAB PO SCH ×2 (18:13→23:50)
[2017-01-22 19:40] VITALS: BP 122/78; PULSE 100; RESP 20
[2017-01-23 04:20] VITALS: BP 100/52; PULSE 77; RESP 17
[2017-01-23] MEDS: IBUPROFEN 800 MG TAB PO SCH ×2 (05:22→12:28)
[2017-01-23 08:02] VITALS: BP 112/64; PULSE 81; RESP 14
[2017-01-23] MEDS ORDERED: DIPHTH/TET/ACEL PERTUSS (ADULT) 0.5 ML VIAL IM* ONE (09:00)
--- NOTE | 2017-01-23 11:44 | DS ---
Date/Time of Note Date/Time of Note DATE: 01/23/17 TIME: 11:43 Obstetrical Discharge Record Final Diagnosis Final Diagnosis: Term delivered Other Final Diagnosis statu post primary c/s for non reassuring FHT pod pt doing well tolerating po bm exam wnl dc home follow up with ob in two weeks Section Section: Primary Primary Indication non reassuring FHT Complications Augmentation: No Induction: No Condition on Discharge Physical Assessment Voiding: Yes Bowel Movement: Yes Breast: Soft, non-tender Fundus: Firm Calf Tenderness: No Patient Condition: Stable TIFFANY AKERS MD Jan 23, 2017 11:44
== END 2017-01-23 17:12 | disposition home or self-care (01) | DRG 766 ==
LOC: L-D 10:48 → OBT 10:48 → L-D 11:15 → OBT 12:10 → L-D 01-20 16:02 → PP1 01-20 21:20
PROVIDERS: ADMIT Obstetrics & Gynecology Obstetrics; ATTEND Obstetrics & Gynecology Obstetrics
PROC: 10D00Z1 Extraction of Products of Conception, Low, Open Approach (ICD-10-PCS; principal; 2017-01-20 16:00)
DX: O62.1 Secondary uterine inertia (principal); Z37.0 Single live birth; Z3A.41 41 weeks gestation of pregnancy
CPT/HCPCS: 62319; 80053; 80307; 82962; 85025; 85610; 85730; 86592; 86900; 86901; 87340; 90715; 99464; G0463; J0595; J0690; J1885; J2250; J2270; J2274; J2370; J2405; J2590; J2765; J3010; J7120